=== PATIENT | female | born 1990 | race Hispanic/Latino ===

== ENCOUNTER 2023-12-23 13:21 | Observation (INO) | payer MEDICAID ==
[~2023-12-23] VITALS: Ht 160 cm; Wt 77.6 kg
[2023-12-23 14:04] LABS: APPEARANCE,URINE CLOUDY (CLEAR); BILIRUBIN,URINE NEGATIVE (NEGATIVE); COLOR,URINE YELLOW (YELLOW); GLUCOSE, URINE (UA) NEGATIVE (NEGATIVE); KETONES,URINE NEGATIVE (NEGATIVE); LEUKOCYTE ESTERASE ,URINE 75 Leu/uL (NEGATIVE); NITRATE,URINE NEGATIVE (NEGATIVE); OCCULT BLOOD,URINE NEGATIVE (NEGATIVE); PROTEIN,URINE 30 mg/dL (NEGATIVE)
[2023-12-23 14:12] LABS: ADD UA MICROSCOPIC YES
[2023-12-23 14:14] LABS: BACTERIA,URINE RARE /HPF (None Seen); MUCUS,URINE MANY LPF (None Seen); SQUAMOUS EPITHELIAL CELL,UR MANY /HPF (0-2)
[2023-12-23] MEDS: ONDANSETRON 4MG INJ IVP ONE (14:41)
[2023-12-23] MEDS: PROMETHAZINE HCL 25 MG/ML 1ML AMPULE IM PRN ×2 (14:42→22:29)
[2023-12-23] MEDS: LACTATED RINGERS 1000ML IV PRN (14:42)
[2023-12-23 15:10] LABS: HEMATOCRIT 35.7 % (36-48); MEAN CORPUSCULAR HEMOGLOBIN 30.3 pg (27.0-33.0); MEAN CORPUSCULAR HGB CONC 33.9 g/dL (32.0-36.0); MEAN CORPUSCULAR VOLUME 89.3 fL (79-99); RED CELL DISTRIBUTION WIDTH 12.8 % (11.0-15.5)
[2023-12-23 15:26] LABS: ALBUMIN 2.5 g/dL (3.5-5.0); BILIRUBIN,DIRECT 0.5 mg/dL (0.0-0.3); BILIRUBIN,TOTAL 1.2 mg/dL (0.2-1.0); TOTAL PROTEIN, SERUM 6.6 g/dL (6.0-8.3)
[2023-12-23] MEDS: MEPERIDINE-PF 25 MG/ML SYG IM PRN (17:44)
[2023-12-23 19:30] VITALS: BP 98/57; PULSE 74; RESP 20
[2023-12-23 22:30] VITALS: BP 96/57; PULSE 74; RESP 20
[2023-12-23] MEDS: LACTATED RINGERS 1000ML 1,000 ML IV SCH (23:30)
[2023-12-24 03:03] VITALS: BP 97/57; PULSE 78; RESP 20
[2023-12-24] MEDS: DEXAMETHASONE SOD PHOSPHATE 4 MG/ML 1ML VIAL IVP SCH (09:09)
[2023-12-24 09:24] VITALS: BP 98/69; PULSE 80; RESP 18
[2023-12-24 10:13] LABS: AMYLASE 697 U/L (25-115)
[2023-12-24 11:23] LABS: ALBUMIN 2.2 g/dL (3.5-5.0); CREATININE 0.4 mg/dL (0.5-1.0); POTASSIUM 3.4 mmol/L (3.5-5.1); TOTAL PROTEIN, SERUM 5.7 g/dL (6.0-8.3)
[2023-12-24 11:59] LABS: CHOLESTEROL 250 mg/dL (<200); HDL CHOLESTEROL 67 mg/dL (35-85); LDL DIRECT 138 mg/dL (0-99); TRIGLYCERIDES 255 mg/dL (30-200)
== END 2023-12-24 11:00 | disposition short-term general hospital (02) ==
LOC: EDH 13:21 → LDH 13:49 → WSH 17:31
PROVIDERS: ADMIT Obstetrics & Gynecology; ATTEND Obstetrics & Gynecology
DX: O99.613 Diseases of the digestive system complicating pregnancy, third trimester (principal); K85.90 Acute pancreatitis without necrosis or infection, unspecified; K80.20 Calculus of gallbladder without cholecystitis without obstruction; Z3A.30 30 weeks gestation of pregnancy
CPT/HCPCS: 96374; 96372; 96361 ×2; 82150 ×2; 80076; 83690 ×2; 85027; 87088; 81001; 36415 ×2; 76705; 80061; 80053; G0378 ×18; J7120 ×4; J2550 ×2; J2405; J2175 ×2; J1100; 96360